=== PATIENT | male | born 1985 | race Caucasian/White ===

== ENCOUNTER 2016-12-14 18:14 | Emergency (ER) | payer MEDICAID, OTHER ==
[2016-12-14 18:19] VITALS: TEMP 97.2
[2016-12-14] MEDS ORDERED: ONDANSETRON 4 MG/2 ML VIAL IVP ONE (18:28)
[2016-12-14] MEDS ORDERED: fentaNYL 100 MCG/2 ML INJ IVP ONE (18:28)
--- NOTE | 2016-12-14 18:54 | EDPHY ---
H & P Smoking Status: Never smoked Time Seen by Provider: 12/14/16 18:19 HPI/ROS: CHIEF COMPLAINT: left shoulder pain HISTORY OF PRESENT ILLNESS: 31-year-old hevcz-vcpf-exhourst male presents emergency department with a left shoulder dislocation. Patient was rock climbing today when a he did a long reach with his right hand and felt his left shoulder dislocate as he was gripping the wall. No previous shoulder dislocations. No previous shoulder injuries. He denies elbow pain. He denies head strike or neck pain. No numbness or tingling in his arm. No other complaints. REVIEW OF SYSTEMS: A comprehensive 10 point review of systems is otherwise negative aside from elements mentioned in the history of present illness. (Allegra Ji) Physical Exam: GEN: Awake, alert, oriented, no acute distress RESP: nl resp effort MSK: Left shoulder with obvious deformity, decreased range of motion due to pain, no elbow pain or wrist pain, subjective tingling sensation to deltoid. 2 + radial pulses, cap refill less than 2 seconds SKIN: No break in skin (Allegra Ji) Constitutional: Initial Vital Signs Temperature (C) 36.2 C 12/14/16 18:16 Heart Rate 63 12/14/16 18:16 Respiratory Rate 17 12/14/16 18:16 Blood Pressure 95/53 L 12/14/16 18:16 O2 Sat (%) 98 12/14/16 18:16 O2 Delivery Mode Room Air O2 (L/minute) 2 Allergies/Adverse Reactions: Penicillins Allergy (Verified 12/14/16 18:15) Home Medications: Medication Instructions Recorded Hydrocodone/APAP 5/325 [Carver 1 tab PO Q4H PRN #14 tab 12/14/16 5/325] Medical Decision Making - Diagnostics Imaging: Left shoulder x-ray independently reviewed by me- Impression: Anterior dislocation. Dictated By: Dipesh Echavarria MD Postreduction left shoulder x-ray independently reviewed by me- Impression: Anatomic alignment following reduction of the anterior left shoulder dislocation. Dictated By: Alfredo Mancuso MD (Allegra Ji) Procedures: Procedure: Dislocation reduction. Indication: Dislocation of the left shoulder. Risks, benefits, alternatives discussed with the patient. Consent was obtained. The shoulder was reduced using a combination of the Smith technique and scapular manipulation without complications. The patient has a normal neurovascular exam distal to the injury post reduction. Patient tolerated the procedure well and is significantly more comfortable. Post reduction x-ray demonstrates reduction of the joint to the anatomic position. The procedure was performed by myself. (Allegra Ji) ED Course/Re-evaluation: X-ray obtained showing an anterior shoulder dislocation. IV established, patient was given 100 mcg of fentanyl and 4 mg of Zofran IV. Shoulder was reduced successfully. Postreduction x-ray shows normal alignment. Patient is discharged home in a sling. He was given follow-up instructions and return precautions for any neurovascular compromise. (Allegra Ji) - Data Points Medications Given: Discontinued Medications Fentanyl (Sublimaze) 100 mcg IVP EDNOW ONE Stop: 12/14/16 18:29 Last Admin: 12/14/16 18:40 Dose: 100 mcg Ibuprofen (Motrin) 600 mg PO EDNOW ONE Stop: 12/14/16 19:01 Last Admin: 12/14/16 19:08 Dose: 600 mg Ondansetron HCl (Zofran) 4 mg IVP EDNOW ONE Stop: 12/14/16 18:29 Last Admin: 12/14/16 18:40 Dose: 4 mg Departure - Departure Disposition: Home, Routine, Self-Care Clinical Impression: Dislocation of left shoulder joint Qualifiers: Encounter type: initial encounter Qualified Code(s): S43.005A - Unspecified dislocation of left shoulder joint, initial encounter Condition: Good Instructions: Shoulder Dislocation (ED) Additional Instructions: Rest, ice, keep the arm in sling for comfort, come out of the sling a few times a day to bend and straighten your elbow. Do not lift anything heavier than a glass of water until you follow up with the orthopedist. Return to the emergency department for any new symptoms or concerns, numbness or tingling in your arm, discoloration of your arm. Take 600 mg of ibuprofen every 8 hours with food, take Carver for severe pain. Referrals: Latha Horn MD [Medical Doctor] - As per Instructions Prescriptions: Hydrocodone/APAP 5/325 [Carver 5/325] 1 tab PO Q4H PRN #14 tab PRN Reason: Pain, Moderate
[2016-12-14] MEDS ORDERED: IBUPROFEN 600 MG TAB PO ONE (19:00)
[2016-12-14 19:10] VITALS: BP 137/78; PULSE 59; RESP 14; O2SAT 97
== END 2016-12-14 19:32 | disposition home or self-care (01) ==
PROC: 0RSKXZZ Reposition Left Shoulder Joint, External Approach (ICD-10-PCS; principal; 2016-12-14)
DX: S43.015A Anterior dislocation of left humerus, initial encounter (principal); X58.XXXA Exposure to other specified factors, initial encounter; Y92.89 Other specified places as the place of occurrence of the external cause; Y99.8 Other external cause status; Y93.31 Activity, mountain climbing, rock climbing and wall climbing
CPT/HCPCS: 96374; A4565; J2405; J3010; L3980